=== PATIENT | female | born 1985 | race Hispanic/Latino ===

== ENCOUNTER 2018-09-07 13:21 | Emergency (ER) | payer OTHER ==
[~2018-09-07] VITALS: Ht 154.9 cm; Wt 84.4 kg
== END 2018-09-07 14:45 | disposition home or self-care (01) ==
LOC: ER 13:26
DX: L02.213 Cutaneous abscess of chest wall (principal); L73.9 Follicular disorder, unspecified; F41.9 Anxiety disorder, unspecified; F32.9 Major depressive disorder, single episode, unspecified; F17.210 Nicotine dependence, cigarettes, uncomplicated
CPT/HCPCS: 99283